=== PATIENT | female | born 1975 | race Hispanic/Latino ===

== ENCOUNTER 2018-12-23 10:43 | Inpatient (IN) | payer BC ==
[2018-12-23 10:48] VITALS: BMI 19.4
--- NOTE | 2018-12-23 11:18 | ED PDOC ---
HPI: Back Time Seen by Provider: 12/23/18 11:00 Chief Complaint (Nursing): Back Pain Chief Complaint (Provider): severe back pain History Per: Patient, Other (PMD Dr Escalante) Onset/Duration Of Symptoms: Worse Since (over last few days) Quality Of Discomfort: Sharp Severity: Severe Pain Scale Rating Of: 10 Previous Symptoms: Back Pain Associated Symptoms: None Exacerbating Factor(s): Turning, Movement, Sitting, Standing Additional Complaint(s): 43yo female presents c/o severe and worsening low back pain, has MRI L spine recently performed demonstrating large disc herniation. Denies incontinence or falls. Denies fever, chest pain or SOB. Has had prior Lumbar surgery, now taking pain medicines and topical patch without relief. Past Medical History Reviewed: Historical Data, Nursing Documentation, Vital Signs Vital Signs: Last Vital Signs Temp 98 F 12/23/18 11:11 Pulse 83 12/23/18 10:47 Resp 18 12/23/18 10:47 BP 144/75 12/23/18 10:47 Pulse Ox 98 12/23/18 11:11 Primary Care Provider: Jaxon Klein - Medical History PMH: Denies: Depression - Surgical History Surgical History: Back Surgery - Family History Family History: States: Unknown Family Hx - Social History Current smoker - smoking cessation education provided: No - Home Medications Home Medications: Ambulatory Orders Medication Instructions Recorded Cyclobenzaprine [Flexeril] 10 mg PO Q12 PRN 12/23/18 Ibuprofen/Famotidine [Duexis 1 tab PO Q8 PRN 12/23/18 800-26.6 mg Tablet] Lidocaine 5% [Lidoderm] 1 patch TD DAILY 12/23/18 traMADol [Ultram] 50 mg PO Q8 PRN 12/23/18 Dexamethasone [Decadron] 4 mg PO BID 8 Days tab 12/25/18 - Allergies Allergies/Adverse Reactions: Allergies Allergy/AdvReac Type Severity Reaction Status Date / Time No Known Allergies Allergy Verified 01/10/13 18:20 Physical Exam - Reviewed Nursing Documentation Reviewed: Yes Vital Signs Reviewed: Yes - Physical Exam Appears: Positive for: Well Head Exam: Positive for: ATRAUMATIC Skin: Positive for: Normal Color, Warm, Dry Cardiovascular/Chest: Negative for: Bradycardia Respiratory: Negative for: Respiratory Distress Back: Positive for: Vertebral Tenderness, Decreased ROM Extremity: Positive for: Normal ROM Neurological/Psych: Positive for: Awake, Alert, Normal Tone, Symmetric/Intact Strength - Laboratory Results Result Diagrams: 12/25/18 05:50 12/25/18 05:50 - ECG O2 Sat by Pulse Oximetry: 98 Disposition - Clinical Impression Clinical Impression: Intractable low back pain, Lumbar radiculopathy, acute, Herniated intervertebral disc of lumbar spine - Patient ED Disposition Is Patient to be Admitted: Yes - Disposition Disposition Time: 11:30 Condition: STABLE - Pt Status Changed To: Hospital Disposition Of: Inpatient (d/w Dr Escalante PMD recommends inpatient care as significant pain and failure of outpatient treatments) - Admit Certification Admit to Inpatient:: After my assessment, the patient will require hospitalization for at least two midnights. This is because of the severity of symptoms shown, intensity of services needed, and/or the medical risk in this patient being treated as an outpatient.
[2018-12-23 11:27] LABS: EOS # 0.1 K/uL (0.0-0.7); EOS % 1.9 % (0.0-4.0); HEMOGLOBIN 12.8 g/dL (12.0-16.0); LYMPH # 1.1 K/uL (1.0-4.3); LYMPH % 25.8 % (20.0-40.0); MEAN CELL VOLUME 84.9 fl (81.0-99.0); MEAN CORPUSCULAR HEMOGLOBIN 27.9 pg (27.0-31.0); MEAN CORPUSCULAR HGB CONC 32.8 g/dL (33.0-37.0); MEAN PLATELET VOLUME 8.8 fl (7.2-11.7); MONO # 0.4 K/uL (0.0-0.8); MONO % 9.1 % (0.0-10.0); NEUT # 2.5 K/uL (1.8-7.0); NEUT % 62.2 % (50.0-75.0); NRBC % 0.1 % (0.0-0.0); RBC 4.59 Mil/uL (3.80-5.20); RED CELL DISTRIBUTION WIDTH 14.2 % (11.5-14.5); WHITE BLOOD COUNT 4.1 K/uL (4.8-10.8)
[2018-12-23 11:38] LABS: PROTHROMBIN TIME 11.5 Seconds (9.8-13.1)
[2018-12-23 11:40] LABS: ALB/GLOB RATIO 1.5 (1.0-2.1); ALBUMIN 4.5 g/dL (3.5-5.0); CALCIUM 9.9 mg/dL (8.4-10.2); PARTIAL THROMBOPLASTIN TIME 31.3 Seconds (25.6-37.1)
--- NOTE | 2018-12-23 14:55 | RAD ---
Date of service: 12/23/2018 HISTORY: Low back pain, shortness of breath. COMPARISON: 02/11/2013. FINDINGS: LUNGS: No active pulmonary disease. PLEURA: No significant pleural effusion identified, no pneumothorax apparent. CARDIOVASCULAR: No atherosclerotic calcification present No radiographic findings to suggest acute or significant cardiovascular disease. OSSEOUS STRUCTURES: No significant abnormalities. VISUALIZED UPPER ABDOMEN: Normal. OTHER FINDINGS: None. IMPRESSION: No active disease. No significant interval change compared to the prior examination(s).
[2018-12-23] MEDS: Lactated Ringer's 1,000 ML IV SCH (16:09)
--- NOTE | 2018-12-23 17:50 | CARD ---
APPROVED REPORT Date of service: 12/23/2018 EKG Measurement Heart [id number] <Conclusion> Normal sinus rhythm Normal ECG
--- NOTE | 2018-12-23 18:40 | CT ---
Date of service: 12/23/2018 PROCEDURE: CT Lumbar Spine without contrast HISTORY: severe intractable back pain COMPARISON: None. TECHNIQUE: Axial computed tomography images were obtained of the lumbar spine without the use of intravenous contrast. Coronal and sagittal reformatted images were created and reviewed. Radiation dose: Total exam DLP = 289.29 mGy-cm. This CT exam was performed using one or more of the following dose reduction techniques: Automated exposure control, adjustment of the mA and/or kV according to patient size, and/or use of iterative reconstruction technique. FINDINGS: VERTEBRAE: Unremarkable. No fracture. Normal alignment. DISCS/SPINAL CANAL/NEURAL FORAMINA: L1-2: Unremarkable. L2-3: Unremarkable. L3-4: Unremarkable. L4-5: Unremarkable. L5-S1: Large herniated disc central and to the left of the midline. Impression upon the thecal sac with little appreciable extension into the exiting neural foramen on the left. PARASPINAL SOFT TISSUES: Unremarkable. OTHER FINDINGS: None. IMPRESSION: Large central/paracentral herniated disc at the L5-S1 level, extending to the left. Little appreciable impression upon the exiting nerve root.
--- NOTE | 2018-12-23 23:25 | CP.PCM.HP ---
History of Present Illness - History of Present Illness History of Present Illness: This is a 43 y/o female with hx of degenerative lumbar disc disease who presented to the office yesterday with intractable back pain radiating to the left lower extremity. She is known to have multiple lumbar herniated discs and bulging discs and had surgery of the lumbar ( l3L4?) last year, She was able to tolerate the pain with pain meds and exercises taught to her during her PT postsurgery but recently her pain has become so unbearable and not relieved by conservative means. In the past 48 hours the pain was described as shooting from the lower back to the the thigh and knee and she had to use crutches to help with her mobility. She was given Tramadol, lidoerm patch and Ibuprofen for pain and was advised to go to ER if pain worsens. Medical Hx Lumbar disc surgery 2018 Present on Admission - Present on Admission Any Indicators Present on Admission: No History of DVT/PE: No History of Uncontrolled Diabetes: No Urinary Catheter: No Decubitus Ulcer Present: No Review of Systems - Musculoskeletal Musculoskeletal: Numbness, Radiating Pain into Limb - Neurological Neurological: Abnormal Gait Past Patient History - Infectious Disease Hx of Infectious Diseases: None - Tetanus Immunizations Tetanus Immunization: Unknown - Past Medical History & Family History Past Medical History?: Yes - Past Social History Smoking Status: Never Smoked - CARDIAC Hx Cardiac Disorders: No (denies) - PULMONARY Hx Respiratory Disorders: No (denies) - NEUROLOGICAL Other/Comment: left foot numbness - RENAL Hx Chronic Kidney Disease: No (denies) - ENDOCRINE/METABOLIC Hx Endocrine Disorders: No (denies) - HEMATOLOGICAL/ONCOLOGICAL Hx Blood Disorders: No (denies) Hx AIDS: No Hx Human Immunodeficiency Virus (HIV): No (denies) - INTEGUMENTARY Hx Dermatological Problems: No (denies) - MUSCULOSKELETAL/RHEUMATOLOGICAL Hx Falls: No (denies) - GASTROINTESTINAL Hx Gastrointestinal Disorders: No - GENITOURINARY/GYNECOLOGICAL Hx Genitourinary Disorders: No - PSYCHIATRIC Hx Substance Use: No (denies) - SURGICAL HISTORY Hx Surgeries: Yes Hx Orthopedic Surgery: Yes (L ACL) Other/Comment: back surgery. knee surgery - ANESTHESIA Hx Anesthesia: Yes Hx Anesthesia Reactions: No Hx Malignant Hyperthermia: No Has any member of the family had a problem w/ anesthesia?: No Meds Allergies/Adverse Reactions: Allergies Allergy/AdvReac Type Severity Reaction Status Date / Time No Known Allergies Allergy Verified 01/10/13 18:20 Physical Exam - Eye Exam Eye Exam: Normal appearance - ENT Exam ENT Exam: Mucous Membranes Moist - Respiratory Exam Respiratory Exam: Clear to Auscultation Bilateral - Cardiovascular Exam Cardiovascular Exam: REGULAR RHYTHM - GI/Abdominal Exam GI & Abdominal Exam: Normal Bowel Sounds - Neurological Exam Neurological exam: CN II-XII Intact - Psychiatric Exam Psychiatric exam: Normal Mood Results - Vital Signs Recent Vital Signs: Last Vital Signs Temp 97.8 F 12/23/18 14:51 Pulse 72 12/23/18 14:51 Resp 19 12/23/18 14:51 BP 122/79 12/23/18 14:51 Pulse Ox 100 12/23/18 14:51 - Labs Result Diagrams: 12/23/18 11:10 12/23/18 11:10 Labs: Laboratory Results - last 24 hr 12/23/18 12/23/18 12/23/18 11:10 11:10 11:10 WBC 4.1 L RBC 4.59 Hgb 12.8 Hct 39.0 MCV 84.9 MCH 27.9 MCHC 32.8 L RDW 14.2 Plt Count 186 MPV 8.8 Neut % (Auto) 62.2 Lymph % (Auto) 25.8 [place] % (Auto) 9.1 Eos % (Auto) 1.9 Baso % (Auto) 1.0 Neut # (Auto) 2.5 Lymph # (Auto) 1.1 [place] # (Auto) 0.4 Eos # (Auto) 0.1 Baso # (Auto) 0.0 PT 11.5 INR 1.0 APTT 31.3 Sodium 135 Potassium 4.1 Chloride 99 Carbon Dioxide 24 Anion Gap 16 BUN 50 H Creatinine 2.2 H Est GFR ( Amer) 29 Est GFR (Non-Af Amer) 24 Random Glucose 82 Calcium 9.9 Total Bilirubin 0.5 AST 27 ALT 29 Alkaline Phosphatase 35 L Total Protein 7.6 Albumin 4.5 Globulin 3.0 Albumin/Globulin Ratio 1.5 Assessment & Plan (1) Lumbar radiculopathy, acute Status: Acute (2) Intractable low back pain Status: Acute (3) Herniated intervertebral disc of lumbar spine Status: Acute - Assessment and Plan (Free Text) Plan: follow up CT scan LS spine which showed large herniated disc L5S1 NPO post midnight reviewed labs medically stable for surgery Consult with Dr vitale
[2018-12-24] MEDS: Lactated Ringer's 1,000 ML IV SCH ×2 (05:10→21:16)
[2018-12-24] MEDS ORDERED: Absorbable Gelatin Sponge Size 12-7 ONE (07:08)
[2018-12-24] MEDS ORDERED: Lidocaine 1% w Epi 1:100,000 Inj ONE (07:08)
[2018-12-24] MEDS ORDERED: Thrombin Topical 5,000 Int Units Spray Kit ONE (07:08)
[2018-12-24] MEDS ORDERED: Bupivacaine 0.5% Inj(30mL) ONE (07:08)
[2018-12-24] MEDS ORDERED: APROTININ/FIBRINOGEN(TISSEEL) ONE (07:09)
[2018-12-24] MEDS ORDERED: Propofol 10 mg/ml Inj (20 ML) ONE (07:14)
[2018-12-24] MEDS ORDERED: Rocuronium 10 mg/ml (5 ml) ONE ×2 (07:14→07:21)
[2018-12-24] MEDS ORDERED: Succinylcholine 200 mg/10 ml Inj IV ONE (07:14)
[2018-12-24] MEDS ORDERED: Midazolam 2 MG/2 ML VIAL ONE (07:14)
[2018-12-24] MEDS ORDERED: Dexamethasone 4 mg/1 ml ONE (07:15)
[2018-12-24] MEDS ORDERED: Lidocaine 4% (Laryng-O-Jet) Kit MM ONE (07:15)
[2018-12-24] MEDS ORDERED: Neostigmine 1:1000 (1 mg/ml) Inj ONE (07:15)
[2018-12-24] MEDS ORDERED: Lidocaine 1% 5ml Abboject ONE (07:15)
--- NOTE | 2018-12-24 07:32 | CP.PCM.CON ---
History of Present Illness - History of Present Illness History of Present Illness: Neurosurgical consult: Dr. Klein Patient is a 43 y/o female c/o severe lower back pain that had progressively worsened over the past few days. She has history of lumbar surgery which had not relieved her pain. The pain has hindered her activities of daily living such as walking. She has tried and failed conservative means with PT and oral meds. The pain radiates to her LLE . She denies any bowel/bladder dysfunction and saddle paresthesias. She denies any CP/SOB/N/V/D/fever/dysuria/melena. PMH: denies PSH: lumbar surgery meds: as per med rec NKDA SH: denies tobacco/drug use Review of Systems - Review of Systems All systems: reviewed and no additional remarkable complaints except Review of Systems: as per HPI Past Patient History - Infectious Disease Hx of Infectious Diseases: None - Tetanus Immunizations Tetanus Immunization: Unknown - Past Medical History & Family History Past Medical History?: Yes Past Family History: Reviewed and not pertinent - Past Social History Smoking Status: Never Smoked - CARDIAC Hx Cardiac Disorders: No (denies) - PULMONARY Hx Respiratory Disorders: No (denies) - NEUROLOGICAL Other/Comment: left foot numbness - RENAL Hx Chronic Kidney Disease: No (denies) - ENDOCRINE/METABOLIC Hx Endocrine Disorders: No (denies) - HEMATOLOGICAL/ONCOLOGICAL Hx Blood Disorders: No (denies) Hx AIDS: No Hx Human Immunodeficiency Virus (HIV): No (denies) - INTEGUMENTARY Hx Dermatological Problems: No (denies) - MUSCULOSKELETAL/RHEUMATOLOGICAL Hx Falls: No (denies) - GASTROINTESTINAL Hx Gastrointestinal Disorders: No - GENITOURINARY/GYNECOLOGICAL Hx Genitourinary Disorders: No - PSYCHIATRIC Hx Substance Use: No (denies) - SURGICAL HISTORY Hx Surgeries: Yes Hx Orthopedic Surgery: Yes (L ACL) Other/Comment: back surgery. knee surgery - ANESTHESIA Hx Anesthesia: Yes Hx Anesthesia Reactions: No Hx Malignant Hyperthermia: No Has any member of the family had a problem w/ anesthesia?: No Meds Allergies/Adverse Reactions: Allergies Allergy/AdvReac Type Severity Reaction Status Date / Time No Known Allergies Allergy Verified 01/10/13 18:20 - Medications Medications: Current Medications Cyclobenzaprine HCl (Flexeril) 10 mg PO Q12 PRN PRN Reason: Muscle spasm Last Admin: 12/23/18 20:47 Dose: 10 mg Lactated Ringer's (Lactated Ringer's) 1,000 mls @ 80 mls/hr IV .[id number] Last Admin: 12/24/18 05:10 Dose: Not Given Tramadol HCl (Ultram) 50 mg PO Q8 PRN PRN Reason: Pain, severe (8-10) Last Admin: 12/24/18 00:00 Dose: 50 mg Physical Exam - Constitutional Appears: Well, No Acute Distress - Head Exam Head Exam: ATRAUMATIC, NORMOCEPHALIC - Eye Exam Eye Exam: EOMI, Normal appearance - ENT Exam ENT Exam: Mucous Membranes Moist - Respiratory Exam Respiratory Exam: NORMAL BREATHING PATTERN - Extremities Exam Extremities exam: Positive for: normal inspection - Back Exam Back exam: paraspinal tenderness, vertebral tenderness Additional comments: old lumbar scar well healed neg clonus - Neurological Exam Neurological exam: Alert, CN II-XII Intact, Oriented x3 - Psychiatric Exam Psychiatric exam: Normal Affect, Normal Mood - Skin Skin Exam: Normal Color, Warm Results - Vital Signs Recent Vital Signs: Last Vital Signs Temp 97.7 F 12/23/18 23:47 Pulse 73 12/23/18 23:47 Resp 20 12/23/18 23:47 BP 109/71 12/23/18 23:47 Pulse Ox 100 12/23/18 23:47 - Labs Result Diagrams: 12/23/18 11:10 12/23/18 11:10 Labs: Laboratory Results - last 24 hr 12/23/18 12/23/18 12/23/18 11:10 11:10 11:10 WBC 4.1 L RBC 4.59 Hgb 12.8 Hct 39.0 MCV 84.9 MCH 27.9 MCHC 32.8 L RDW 14.2 Plt Count 186 MPV 8.8 Neut % (Auto) 62.2 Lymph % (Auto) 25.8 [place] % (Auto) 9.1 Eos % (Auto) 1.9 Baso % (Auto) 1.0 Neut # (Auto) 2.5 Lymph # (Auto) 1.1 [place] # (Auto) 0.4 Eos # (Auto) 0.1 Baso # (Auto) 0.0 PT 11.5 INR 1.0 APTT 31.3 Sodium 135 Potassium 4.1 Chloride 99 Carbon Dioxide 24 Anion Gap 16 BUN 50 H Creatinine 2.2 H Est GFR ( Amer) 29 Est GFR (Non-Af Amer) 24 Random Glucose 82 Calcium 9.9 Total Bilirubin 0.5 AST 27 ALT 29 Alkaline Phosphatase 35 L Total Protein 7.6 Albumin 4.5 Globulin 3.0 Albumin/Globulin Ratio 1.5 - Impressions Impression: MRI from outside facility reveals disc herniation at L5-S1 Accession No. : [id number] Patient Name / ID : SRIDHAR ESQUIVEL / [id number] Exam Date : 12/23/2018 18:16:02 ( Approved ) Study Comment : Sex / Age : F / 43Y Creator : Compa Genao MD Dictator : Compa Genao MD Rat Farmer : Cloth Mercerizing Supervisor : Compa Genao MD Approver2 : Report Date : 12/23/2018 18:36:42 My Comment : Date of service: 12/23/2018 PROCEDURE: CT Lumbar Spine without contrast HISTORY: severe intractable back pain COMPARISON: None. TECHNIQUE: Axial computed tomography images were obtained of the lumbar spine without the use of intravenous contrast. Coronal and sagittal reformatted images were created and reviewed. Radiation dose: Total exam DLP = 289.29 mGy-cm. This CT exam was performed using one or more of the following dose reduction techniques: Automated exposure control, adjustment of the mA and/or kV according to patient size, and/or use of iterative reconstruction technique. FINDINGS: VERTEBRAE: Unremarkable. No fracture. Normal alignment. DISCS/SPINAL CANAL/NEURAL FORAMINA: L1-2: Unremarkable. L2-3: Unremarkable. L3-4: Unremarkable. L4-5: Unremarkable. L5-S1: Large herniated disc central and to the left of the midline. Impression upon the thecal sac with little appreciable extension into the exiting neural foramen on the left. PARASPINAL SOFT TISSUES: Unremarkable. OTHER FINDINGS: None. IMPRESSION: Large central/paracentral herniated disc at the L5-S1 level, extending to the left. Little appreciable impression upon the exiting nerve root. Assessment & Plan (1) Lumbar spondylosis Assessment and Plan: Dr. Klein has seen, examined patient and reviewed imaging. Plan is to perform lumbar laminectomy and microdiscectomy at L5-S1, possible other levels Risks/benefits/alternatives were explained to patient who understands and agrees to proceed with above NPO above d/w Dr. Klein who agrees Status: Acute - Date & Time Date: 12/24/18 Time: 07:30
[2018-12-24] MEDS ORDERED: Lactated Ringer's 1,000 ML IV ONE (07:35)
[2018-12-24] MEDS ORDERED: Bacitracin 500 Units/gm Oint Foilpak UD TOP ONE (08:00)
[2018-12-24] MEDS ORDERED: Thrombin Topical 5,000 Int Units Spray Kit TOP ONE (08:30)
[2018-12-24] MEDS ORDERED: Absorbable Gelatin Sponge Size 12-7 TP ONE (08:30)
[2018-12-24] MEDS ORDERED: Bupivacaine 0.5% 50 ML IJ ONE (09:15)
--- NOTE | 2018-12-24 09:39 | PCM.SURG1 ---
Surgeon's Initial Post Op Note - Surgeon's Notes Surgeon: Jaxon Klein MD Quality Assurance Inspector: Johan Contreras PA-C Type of Anesthesia: General Endo Anesthesia Administered By: Everardo HUBER Pre-Operative Diagnosis: Lumbar spondylosis Operative Findings: see complete operative report Post-Operative Diagnosis: Lumbar spondylosis L5-S1 Operation Performed: Lumbar laminectomy, posterolateral fusion and microdiscectomy at L5-S1 Specimen/Specimens Removed: disc tissue Estimated Blood Loss: EBL {In ML}: 25 Blood Products Given: N/A Drains Used: No Drains Post-Op Condition: Good Date of Surgery/Procedure: 12/24/18 Time of Surgery/Procedure: 07:55
[2018-12-24] MEDS ORDERED: Oxycodone/Acetaminophen 5/325 mg Tab PO PRN (09:40)
[2018-12-24] MEDS ORDERED: HYDROmorphone 0.5 mg/0.5 ml ISec IVP PRN (09:43)
[2018-12-24] MEDS ORDERED: Lactated Ringer's 1,000 ML IV SCH ×2 (09:45)
[2018-12-24] MEDS ORDERED: Lactated Ringer's 1,000 ML IV PRN (12:00)
--- NOTE | 2018-12-24 13:21 | RAD ---
Date of service: 12/24/2018 PROCEDURE: Intraoperative Fluoroscopy. HISTORY: LUMBAR LAMINECTOMY FINDINGS: Fluoroscopic assistance was provided. Fluoroscopy time = 5.1 sec. Radiation dose = 2.5 mGy. Please refer to the operative report for additional details.
--- NOTE | 2018-12-24 20:50 | OP ---
PROCEDURE DATE: 12/24/2018 PREOPERATIVE DIAGNOSIS: Recurrent herniated disk at L5-S1. POSTOPERATIVE DIAGNOSIS: Recurrent herniated disk at L5-S1. PROCEDURES: L5-S1 laminectomy, removal of herniated disk, L5-S1 posterolateral fusion. Fluoroscopy has been used. Microscopy has been used. SURGEON: Jaxon Klein MD INDUSTRIAL MAINTENANCE MILLWRIGHT: Johan Contreras PA-C. Johan Contreras is a physician assistant shift supervisor who stayed throughout the case from beginning to the end and helped me to perform the surgery. DESCRIPTION OF PROCEDURE: The patient was brought to the operating room, anesthetized with general endotracheal anesthesia, placed in a prone position on the Maksim table. Care was taken to protect all pressure points. Back of the lumbar area was thoroughly prepped and draped in a standard sterile manner and over the lumbar area skin has been incised. Bleeding skin has been controlled with bipolar knitting machine fixer head. After using a Bovie knitting machine fixer head, paraspinal muscles have been detached from the spinous process and lamina at L5-S1. On the left side, it is noted laminectomy defect which was scar tissue. Scar tissue has been removed. Bridgette retractor has been applied to alter the facet joint. Under magnification, the lamina of L5-S1 has been drilled until the normal dura has been seen. On the medial part of the facet, further medial facetectomy has been done by using a fine drill. After that, all the thinned out bone and the scar tissue has been removed. Nerve root and neural tube have been retracted medially. There was a significant amount of scar tissue on the distal found to be going towards the midline and careful microsurgical technique has been applied to remove the fragments of the disk and further diskectomy also has been performed and extruded fragment removed. Foraminotomy was then performed. After that because this is a reoperation, the patient 's previous laminectomy, medial facetectomy and further medial facetectomy in this case and posterolateral fusion has been performed by drilling the lateral aspect of the facet joint and transverse process. Demineralized bone placed in the area achieving a posterolateral fusion. After that, hemostasis was best achieved. Fascia was closed, interspinous ligaments and spinous process with 1 Vicryl, subcutaneous with 3-0 Vicryl, skin has been done with intradermal stitches. The patient tolerated the procedure. Jaxon Klein MD [facility] # [id number]
[2018-12-25 01:01] VITALS: RESP 18
[2018-12-25 06:14] LABS: HEMOGLOBIN 11.5 g/dL (12.0-16.0); MEAN CELL VOLUME 84.2 fl (81.0-99.0); MEAN CORPUSCULAR HEMOGLOBIN 28.7 pg (27.0-31.0); MEAN CORPUSCULAR HGB CONC 34.1 g/dL (33.0-37.0); RBC 3.99 Mil/uL (3.80-5.20); WHITE BLOOD COUNT 9.4 K/uL (4.8-10.8)
[2018-12-25 06:40] LABS: BLOOD UREA NITROGEN 22 mg/dl (7-17); CALCIUM 8.9 mg/dL (8.4-10.2); GFR NON-AFRICAN AMERICAN > 60
[2018-12-25 09:01] VITALS: BP 129/75; PULSE 65; TEMP 98.6
--- NOTE | 2018-12-25 09:59 | CP.PCM.PN ---
Subjective - Date & Time of Evaluation Date of Evaluation: 12/25/18 Time of Evaluation: 09:00 - Subjective Subjective: Patient states she is having a lot of pain in her back. Denies numbness/tingling, CP/SOB/dizziness. Objective - Vital Signs/Intake and Output Vital Signs (last 24 hours): Temp Pulse Resp BP Pulse Ox 98.6 F 65 18 129/75 97 12/25/18 09:01 12/25/18 09:01 12/25/18 09:01 12/25/18 09:01 12/25/18 09:01 - Medications Medications: Current Medications Acetaminophen (Tylenol 325mg Tab) 650 mg PO Q4 PRN PRN Reason: Fever 101 degrees fahrenheit Cyclobenzaprine HCl (Flexeril) 10 mg PO Q8 PRN PRN Reason: Muscle spasm Dexamethasone (Decadron) 4 mg PO Q8 [facility] Last Admin: 12/25/18 08:19 Dose: 4 mg Lactated Ringer's (Lactated Ringer's) 1,000 mls @ 80 mls/hr IV .[id number] [facility] Last Admin: 12/24/18 21:16 Dose: 80 mls/hr Morphine Sulfate (Morphine) 4 mg IVP Q4 PRN PRN Reason: Pain, severe (8-10) Ondansetron HCl (Zofran Inj) 4 mg IVP ONCE PRN PRN Reason: Nausea/Vomiting Oxycodone/Acetaminophen (Percocet 5/325 Mg Tab) 1 tab PO Q4 PRN PRN Reason: Pain, moderate (4-7) Stop: 12/27/18 09:41 Last Admin: 12/25/18 08:21 Dose: 1 tab - Labs Labs: 12/25/18 05:50 12/25/18 05:50 PT 11.5 Seconds (9.8-13.1) 12/23/18 11:10 INR 1.0 12/23/18 11:10 APTT 31.3 Seconds (25.6-37.1) 12/23/18 11:10 - Back Exam Additional comments: Patient slow to roll in bed, dressing intact, dry, minimal swelling noted +ROM ankle/toes/knee/hips flex/ext 5/5, sensation intact L2-S1 BLE, +DP/PT pulses calves soft NT neg homans Assessment and Plan (1) Herniation of intervertebral disc between L5 and S1 Assessment & Plan: POD#1 s/p laminectomy and fusion -PT/OT -encourage OOB -stable for d/c home -f/u Dr. Klein in 2 weeks call for appt -keep incision clean and dry -d/w Dr. Klein, agrees with above Status: Acute
[2018-12-25 16:10] VITALS: O2SAT 98
--- NOTE | 2018-12-27 02:27 | CP.PCM.PN ---
Subjective - Date & Time of Evaluation Date of Evaluation: 12/24/18 Time of Evaluation: 11:00 - Subjective Subjective: Patient is doing well post op Objective - Vital Signs/Intake and Output Vital Signs (last 24 hours): Temp Pulse Resp BP Pulse Ox 98.6 F 65 18 129/75 98 12/25/18 09:01 12/25/18 12:13 12/25/18 09:01 12/25/18 12:13 12/25/18 16:11 - Labs Labs: 12/25/18 05:50 12/25/18 05:50 PT 11.5 Seconds (9.8-13.1) 12/23/18 11:10 INR 1.0 12/23/18 11:10 APTT 31.3 Seconds (25.6-37.1) 12/23/18 11:10 Assessment and Plan (1) Lumbar radiculopathy, acute Status: Acute (2) Intractable low back pain Status: Acute (3) Herniated intervertebral disc of lumbar spine Status: Acute
--- NOTE | 2018-12-27 02:28 | CP.PCM.DIS ---
Provider - Provider Date of Admission: 12/23/18 11:10 Attending physician: Arturo Escalante MD Consults: 12/23/18 15:01 Neuro Surgery Consult Routine Comment: Consulting Provider: Jaxon Vitale Consulting Physician: Jaxon Vitale Reason for Consult: Intractable back pain 12/24/18 09:40 Case Management Referral Routine Comment: Physician Instructions: Reason For Exam: Reason for Referral: Discharge Planning Diagnosis - Discharge Diagnosis (1) Lumbar radiculopathy, acute Status: Acute (2) Intractable low back pain Status: Acute (3) Herniated intervertebral disc of lumbar spine Status: Acute Hospital Course - Lab Results Lab Results: Most Recent Lab Values WBC 9.4 K/uL (4.8-10.8) D 12/25/18 05:50 RBC 3.99 Mil/uL (3.80-5.20) 12/25/18 05:50 Hgb 11.5 g/dL (12.0-16.0) L 12/25/18 05:50 Hct 33.6 % (34.0-47.0) L 12/25/18 05:50 MCV 84.2 fl (81.0-99.0) 12/25/18 05:50 MCH 28.7 pg (27.0-31.0) 12/25/18 05:50 MCHC 34.1 g/dL (33.0-37.0) 12/25/18 05:50 RDW 14.0 % (11.5-14.5) 12/25/18 05:50 Plt Count 168 K/uL (130-400) 12/25/18 05:50 MPV 8.8 fl (7.2-11.7) 12/23/18 11:10 Neut % (Auto) 62.2 % (50.0-75.0) 12/23/18 11:10 Lymph % (Auto) 25.8 % (20.0-40.0) 12/23/18 11:10 [place] % (Auto) 9.1 % (0.0-10.0) 12/23/18 11:10 Eos % (Auto) 1.9 % (0.0-4.0) 12/23/18 11:10 Baso % (Auto) 1.0 % (0.0-2.0) 12/23/18 11:10 Neut # (Auto) 2.5 K/uL (1.8-7.0) 12/23/18 11:10 Lymph # (Auto) 1.1 K/uL (1.0-4.3) 12/23/18 11:10 [place] # (Auto) 0.4 K/uL (0.0-0.8) 12/23/18 11:10 Eos # (Auto) 0.1 K/uL (0.0-0.7) 12/23/18 11:10 Baso # (Auto) 0.0 K/uL (0.0-0.2) 12/23/18 11:10 PT 11.5 Seconds (9.8-13.1) 12/23/18 11:10 INR 1.0 12/23/18 11:10 APTT 31.3 Seconds (25.6-37.1) 12/23/18 11:10 Sodium 136 mmol/l (132-148) 12/25/18 05:50 Potassium 4.2 MMOL/L (3.6-5.0) 12/25/18 05:50 Chloride 102 mmol/L (98-107) 12/25/18 05:50 Carbon Dioxide 28 mmol/L (22-30) 12/25/18 05:50 Anion Gap 10 (10-20) 12/25/18 05:50 BUN 22 mg/dl (7-17) H 12/25/18 05:50 Creatinine 0.8 mg/dl (0.7-1.2) 12/25/18 05:50 Est GFR ( Amer) > 60 12/25/18 05:50 Est GFR (Non-Af Amer) > 60 12/25/18 05:50 Random Glucose 132 mg/dL (65-105) H 12/25/18 05:50 Calcium 8.9 mg/dL (8.4-10.2) 12/25/18 05:50 Total Bilirubin 0.5 mg/dl (0.2-1.3) 12/23/18 11:10 AST 27 U/L (14-36) 12/23/18 11:10 ALT 29 U/L (9-52) 12/23/18 11:10 Alkaline Phosphatase 35 U/L (38-126) L 12/23/18 11:10 Total Protein 7.6 G/DL (6.3-8.2) 12/23/18 11:10 Albumin 4.5 g/dL (3.5-5.0) 12/23/18 11:10 Globulin 3.0 gm/dL (2.2-3.9) 12/23/18 11:10 Albumin/Globulin Ratio 1.5 (1.0-2.1) 12/23/18 11:10 - Hospital Course Hospital Course: This is a 43 y/o female admitted for intractable lumbar radiculopathy. Discharge Exam - Head Exam Head Exam: ATRAUMATIC Discharge Plan - Discharge Medications Prescriptions: Dexamethasone [Decadron] 4 mg PO BID 8 Days tab - Follow Up Plan Condition: STABLE Disposition: HOME/ ROUTINE Instructions: Laminectomy (DC), Postspine Surgery Precautions Additional Instructions: follow up with dr vitale in 1 week Referrals: Jaxon Vitale MD [Staff Provider] -
== END 2018-12-25 14:34 | disposition home or self-care (01) | DRG 460 ==
LOC: H.ER 10:43 → H.ERHOLD 11:10 → H.MEDSURG1 14:31
PROVIDERS: ADMIT Family Medicine; ATTEND Family Medicine
PROC: 0ST40ZZ Resection of Lumbosacral Disc, Open Approach (ICD-10-PCS; 2018-12-24)
PROC: 0SG30K1 Fusion of Lumbosacral Joint with Nonautologous Tissue Substitute, Posterior Approach, Posterior Column, Open Approach (ICD-10-PCS; principal; 2018-12-24 07:45)
DX: M51.17 Intervertebral disc disorders with radiculopathy, lumbosacral region (principal); M47.26 Other spondylosis with radiculopathy, lumbar region